=== PATIENT | female | born 1990 | race Two or more races ===

== ENCOUNTER → 2025-01-17 | Outpatient (CLI) | payer MEDICAID, SELFPAY ==
--- NOTE | 2025-01-17 16:00 | XR_ITS ---
EXAMINATION: Left breast sonography complete TECHNIQUE: Grayscale sonographic images left breast including retroareolar region and axillary area Date and time: January 17, 2025, 1559 hours INDICATIONS: Burning sensation in the left breast 1 year FINDINGS: No cystic or solid mass IMPRESSION: BI-RADS Category 1: Negative study
== END | disposition home or self-care (01) ==
LOC: CDIM 15:15
PROVIDERS: PCP Family Medicine; Referring Provider Family Medicine; Visit Provider Family Medicine
DX: R20.8 Other disturbances of skin sensation (principal)
CPT/HCPCS: 76641